=== PATIENT | female | born 1985 | race Caucasian/White ===

== ENCOUNTER 2017-04-15 16:50 | Emergency (ER) | payer SELFPAY ==
[2017-04-15 19:43] LABS: BASOPHILS 0.3 % (0-2); EOSINOPHILS 0.7 % (0-7); HEMATOCRIT 40.1 % (36.0-48.0); HEMOGLOBIN 13.6 g/dL (12-16); IMMATURE GRANULOCYTES 0.7 % (0-5); LYMPHOCYTES 21.6 % (15-50); MCH 29.9 pg (26.0-34.0); MCHC 33.9 g/dL (31.0-37.0); MCV 88.1 fL (80.0-100.0); MEAN PLATELET VOLUME 9.6 fL (7.4-10.4); MONOCYTES 4.8 % (2-11); NEUTROPHILS 71.9 % (40-80); PLATELET COUNT 263 10x3/uL (130-400); RBC 4.55 10x6/uL (4.00-5.40); RDW 12.7 % (11.5-14.5); WBC 10.5 10x3/uL (4.8-10.8)
[2017-04-15 19:51] LABS: CALC OSMOLALITY 273 mosm/kg (275-300); CALCIUM 8.4 mg/dL (8.5-10.1); CARBON DIOXIDE 24.6 mmol/L (21.0-32.0); CHLORIDE - SERUM 103 mmol/L (98-107); CREATININE - SERUM 0.6 mg/dL (0.6-1.3); GLUCOSE 80 mg/dL (74-106); SODIUM 138 mmol/L (136-145); UREA NITROGEN 11 mg/dL (7-18); eGFR NON AFRICAN AMERICAN > 90 mL/min (90-120)
== END 2017-04-15 21:30 | disposition home or self-care (01) ==
LOC: D.ER 16:50
PROVIDERS: Nurse Practitioner Acute Care
DX: I10 Essential (primary) hypertension (principal); F17.200 Nicotine dependence, unspecified, uncomplicated

== ENCOUNTER 2020-10-28 13:40 | Emergency (ER) | payer SELFPAY ==
[~2020-10-28] VITALS: Ht 175.3 cm; Wt 104.5 kg
[2020-10-28 13:49] VITALS: BP 150/94; Ht 175.3 cm; Wt 104.5 kg
[2020-10-28 14:42] LABS: BASOPHILS 0.8 % (0-2); EOSINOPHILS 1.8 % (0-7); HEMATOCRIT 38.9 % (36.0-48.0); HEMOGLOBIN 12.8 g/dL (12-16); LYMPHOCYTE ABS# 1.29 10x3/uL (1.18-3.74); LYMPHOCYTES 32.3 % (15-50); MCH 26.8 pg (26.0-34.0); MCHC 32.9 g/dL (31.0-37.0); MCV 81.4 fL (80.0-100.0); MEAN PLATELET VOLUME 9.7 fL (7.4-10.4); MONOCYTES 8.5 % (2-11); NEUTROPHIL ABS# 2.26 10x3/uL (1.56-6.13); NEUTROPHILS 56.6 % (40-80); PLATELET COUNT 299 10x3/uL (130-400); RBC 4.78 10x6/uL (4.00-5.40); RDW 14.6 % (11.5-14.5)
[2020-10-28 14:55] LABS: CALC OSMOLALITY 281 mosm/kg (275-300); CALCIUM 8.7 mg/dL (8.5-10.1); CARBON DIOXIDE 21.4 mmol/L (21.0-32.0); CHLORIDE - SERUM 107 mmol/L (98-107); CREATININE - SERUM 0.7 mg/dL (0.6-1.3); GLUCOSE 90 mg/dL (74-106); POTASSIUM - SERUM 3.9 mmol/L (3.5-5.1); SODIUM 142 mmol/L (136-145); UREA NITROGEN 10 mg/dL (7-18); eGFR NON AFRICAN AMERICAN > 90 mL/min (90-120)
[2020-10-28 14:56] LABS: HCG URINE NEGATIVE (NEGATIVE)
[2020-10-28 15:00] LABS: ALBUMIN 3.5 g/dL (3.4-5.0); ALKALINE PHOSPHATASE 74 U/L (30-120); ALT (SGPT) 19 U/L (10-68); BILIRUBIN - TOTAL 0.31 mg/dL (0.2-1.3); LIPASE 105 U/L (73-393); PROTEIN - SERUM 7.1 g/dL (6.4-8.2)
[2020-10-28 15:04] LABS: BACTERIA FEW HPF (NONE SEEN); BILIRUBIN NEGATIVE (NEGATIVE); KETONE NEGATIVE (NEGATIVE); NITRITE NEGATIVE (NEGATIVE); PH 6.5 (5.0-8.0); SQUAMOUS EPITHELIAL 0-5 HPF (0-4); UROBILINOGEN NORMAL mg/dL (< 2); WHITE CELLS - URINE NONE SEEN HPF (0-4)
[2020-10-28] MEDS ORDERED: LOMOTIL 2.5-0.1 EAC1 PO ×2 (15:20→15:21)
[2020-10-28] MEDS ORDERED: ZOFRAN ODT4 MG/UDTAB PO (15:20)
== END 2020-10-28 15:30 | disposition home or self-care (01) ==
LOC: D.ER 13:40
PROVIDERS: Emergency Medicine
DX: R11.2 Nausea with vomiting, unspecified (principal); R19.7 Diarrhea, unspecified; K58.9 Irritable bowel syndrome, unspecified

== ENCOUNTER 2020-12-10 18:10 | Emergency (ER) | payer SELFPAY ==
[~2020-12-10] VITALS: Ht 175.3 cm; Wt 104.3 kg
[~2020-12-10 18:10] MED LIST: LOMOTIL 2.5-0.1 EAC1 PO; ZOFRAN ODT4 MG/UDTAB PO
[2020-12-10 18:28] VITALS: Ht 175.3 cm; Wt 104.3 kg
[2020-12-10 18:58] LABS: BASOPHILS 0.8 % (0-2); EOSINOPHILS 1.7 % (0-7); HEMATOCRIT 38.3 % (36.0-48.0); HEMOGLOBIN 12.5 g/dL (12-16); LYMPHOCYTES 16.5 % (15-50); MCHC 32.8 g/dL (31.0-37.0); MCV 79.3 fL (80.0-100.0); MEAN PLATELET VOLUME 7.6 fL (7.4-10.4); MONOCYTES 7.1 % (2-11); NEUTROPHILS 73.9 % (40-80); PLATELET COUNT 354 10x3/uL (130-400); RBC 4.83 10x6/uL (4.00-5.40); RDW 15.4 % (11.5-14.5); WBC 6.6 10x3/uL (4.8-10.8)
[2020-12-10 19:38] LABS: CALC OSMOLALITY 279 mosm/kg (275-300); CALCIUM 8.9 mg/dL (8.5-10.1); CARBON DIOXIDE 25.9 mmol/L (21.0-32.0); CHLORIDE - SERUM 107 mmol/L (98-107); CREATININE - SERUM 0.8 mg/dL (0.6-1.3); GLUCOSE 99 mg/dL (74-106); POTASSIUM - SERUM 3.5 mmol/L (3.5-5.1); SODIUM 141 mmol/L (136-145); UREA NITROGEN 9 mg/dL (7-18); eGFR NON AFRICAN AMERICAN 87 mL/min (90-120)
[2020-12-10 19:47] LABS: ALBUMIN 3.5 g/dL (3.4-5.0); ALKALINE PHOSPHATASE 78 U/L (30-120); ALT (SGPT) 28 U/L (10-68); AMYLASE - SERUM 35 U/L (25-115); BILIRUBIN - TOTAL 0.39 mg/dL (0.2-1.3); LIPASE 113 U/L (73-393); PROTEIN - SERUM 7.1 g/dL (6.4-8.2); TROPONIN-I < 0.017 ng/mL (0.000-0.060)
[2020-12-10 20:09] LABS: BILIRUBIN NEGATIVE (NEGATIVE); HCG URINE NEGATIVE (NEGATIVE); KETONE NEGATIVE (NEGATIVE); NITRITE NEGATIVE (NEGATIVE); UROBILINOGEN NORMAL mg/dL (< 2)
[2020-12-10 20:15] LABS: BACTERIA MODERATE HPF (NONE SEEN)
[2020-12-10] MEDS ORDERED: ZOFRAN ODT4 MG/UDTAB PO (21:50)
[2020-12-10] MEDS ORDERED: OMNICEF300 MG PO (21:50)
[2020-12-10 22:15] VITALS: BP 164/104
== END 2020-12-10 23:00 | disposition home or self-care (01) ==
LOC: D.ER 18:10
PROVIDERS: Family Medicine
DX: N39.0 Urinary tract infection, site not specified (principal); R10.84 Generalized abdominal pain